=== PATIENT | male | born 1970 | race Caucasian/White ===

== ENCOUNTER 2020-05-09 21:53 | Emergency (ER) | payer MEDICAID ==
[~2020-05-09] VITALS: Ht 167.6 cm; Wt 65.3 kg
--- NOTE | 2020-05-09 22:15 | NUR ---
MARIRA 39 FROM HOME. PER EMS/ FAMILY REPORT W/ C/O ETOH X 12 HRS. PT ALERT AND RESPONSIVE BUT NOT COERENT. PER EMS PT HAS HX OF "KIDNEY DIS" . PT IS UNABLE TO PROVIDE MORE INFO AT THIS TIME . VSS. PT WAS TRANSFERRED TO BED 14 AND PLACED ON MONITOR W/ SUPERVISION OF A SITTER,.
[2020-05-09] MEDS ORDERED: diphenhydrAMINE HCL 50 MG/ML VIAL ONE (22:26)
[2020-05-09] MEDS ORDERED: OLANZAPINE 5 MG TABLET ONE (22:27)
[2020-05-09] MEDS ORDERED: diphenhydrAMINE HCL 50 MG/ML VIAL IM ONE (22:30)
[2020-05-09] MEDS ORDERED: OLANZAPINE 5 MG TABLET PO ONE (22:30)
--- NOTE | 2020-05-09 22:30 | NUR ---
PT SCREAMING AND CURSING. UNABLE TO COLLECT URINE. WILL TRY SOON.
[2020-05-09 22:46] LABS: BASOPHILS % (AUTO) 0.5 % (0.0-2.0); EOSINOPHILS % (AUTO) 1.9 % (0.0-6.0); HEMATOCRIT 41 % (39-51); HEMOGLOBIN 13.9 g/dL (13.5-17.5); LYMPHOCYTES # (AUTO) 4.3 /CMM (0.8-4.8); LYMPHOCYTES % (AUTO) 45.5 % (20.0-44.0); MEAN CORPUSCULAR HGB CONC 34 g/dl (31.0-36.0); MEAN CORPUSCULAR VOLUME 97 fL (80-96); MONOCYTES # (AUTO) 0.5 /CMM (0.1-1.30); MONOCYTES % (AUTO) 5.1 % (2.0-12.0); NEUTROPHILS # (AUTO) 4.4 /CMM (1.8-8.9); PLATELET COUNT (AUTO) 140 /CMM (150-450); RED BLOOD CELL COUNT(AUTO) 4.21 MIL/uL (4.5-6.0); WHITE BLOOD COUNT (AUTO) 9.4 K/uL (4.3-11.0)
--- NOTE | 2020-05-09 22:56 | NUR ---
PATIENT STATES, "FUCK RO [employer] MOTHERFUCKER"
[2020-05-09 23:00] LABS: CALCIUM, SERUM 9.9 mg/dL (8.5-10.1); CARBON DIOXIDE 22 mmol/L (21-32); CHLORIDE 100 mmol/L (98-107); CREATININE 0.8 mg/dL (0.6-1.3); GLUCOSE 121 mg/dL (74-106); POTASSIUM 3.7 mmol/L (3.5-5.1); SODIUM SERUM 137 mmol/L (136-145); UREA NITROGEN, BLOOD 14 mg/dL (7-18)
[2020-05-09 23:07] LABS: ALANINE AMINOTRANSFERASE 119 U/L (12-78); ALBUMIN 3.7 g/dL (3.4-5.0); ALKALINE PHOSPHATASE 53 U/L (46-116); ASPARTATE AMINOTRANSFERASE 129 U/L (15-37); BILIRUBIN,DIRECT 0.2 mg/dL (0.0-0.2); BILIRUBIN,TOTAL 0.4 mg/dL (0.2-1.0); SALICYLATE 5.2 mg/dL (2.8-20.0); TOTAL PROTEIN, SERUM 7.3 g/dL (6.4-8.2)
[2020-05-09 23:09] LABS: ACETAMINOPHEN < 2 ug/ml (10-30)
--- NOTE | 2020-05-09 23:42 | NUR ---
PT CURSING STATING "I WILL FUCK YOUR MAMA"
[2020-05-10] MEDS ORDERED: LORAZEPAM INJ 2 MG/ML VIAL ONE (00:07)
--- NOTE | 2020-05-10 00:22 | NUR ---
URINE COLLECTED AND SENT TO THE LAB.
--- NOTE | 2020-05-10 00:23 | NUR ---
PT VERBALLY ABUSIVE TRYING TO SPIT ON STAFF.
[2020-05-10] MEDS ORDERED: LORAZEPAM INJ 2 MG/ML VIAL IM ONE (00:30)
[2020-05-10 00:47] LABS: ALCOHOL, BLOOD 260 mg/dL (0-0)
[2020-05-10 00:57] LABS: APPEARANCE,URINE CLEAR (CLEAR); BILIRUBIN,URINE NEGATIVE (NEGATIVE); BLOOD, URINE NEGATIVE Ery/uL (NEGATIVE); COLOR,URINE YELLOW (YELLOW); KETONES,URINE NEGATIVE (NEGATIVE); LEUKOCYTE ESTERASE ,URINE NEGATIVE (NEGATIVE); NITRITE, URINE NEGATIVE (NEGATIVE); PROTEIN,URINE NEGATIVE (NEGATIVE); UGLUCOSE NEGATIVE (NEGATIVE); UROBILINOGEN,URINE 0.2 EU/dL (0.2)
--- NOTE | 2020-05-10 02:09 | NUR ---
PATIENT IS SLEEPING. EASILY AROUSABLE THROUGH VERBAL AND MECHANICAL STIMULI. CONNECTED TO THE MONITOR. BREATHING EVENLY AND UNLABORED ON ROOM AIR. NOT IN ANY DISTRESS. SIDE RAILS ARE UP FOR SAFETY. WARM BLANKET PROVIDED TO PATIENT FOR WARMTH WITH NO SIGNS OF FEVER. SITTER AT BEDSIDE.
[2020-05-10 06:17] VITALS: BP 121/72
--- NOTE | 2020-05-10 06:17 | NUR ---
Patient discharged to home in stable condition. Written and verbal after care instructions given. Patient verbalizes understanding of instruction. Pt picked up by mother. Ambulated with steady gait. vss.
== END 2020-05-10 06:18 | disposition home or self-care (01) ==
LOC: ER 21:56
DX: F10.129 Alcohol abuse with intoxication, unspecified (principal); R45.6 Violent behavior; Y90.8 Blood alcohol level of 240 mg/100 ml or more
CPT/HCPCS: 36415; 80048; 80076; 80305; 80307; 80329; 81001; 85025; 96372 ×2; 99284; G0480; J1200; J2060; 81000-TC

== ENCOUNTER 2020-07-29 15:50 | Emergency (ER) | payer MEDICAID ==
[~2020-07-29] VITALS: Ht 177.8 cm; Wt 75.7 kg
--- NOTE | 2020-07-29 15:53 | NUR ---
[id number] FROM HOME WITH C/O RIGHT KNEE PAIN S/P FALL LAST NIGHT. PT STATES HE WAS IN THE BATHROOM WHEN HE FELL AND HIT HIS RIGHT KNEE. NOTED WITH SWELLING ON RIGHT KNEE. -KO. PER PT, DIDNT HIT HIS HEAD. AWAITING FOR MD PLUNKETT
--- NOTE | 2020-07-29 16:19 | NUR ---
x ray done at bedside
[2020-07-29] MEDS ORDERED: MORPHINE SULFATE INJ 4 MG/ML DISP.SYRIN ONE (16:20)
[2020-07-29] MEDS ORDERED: MORPHINE SULFATE INJ 4 MG/ML DISP.SYRIN IM ONE (16:30)
--- NOTE | 2020-07-29 16:45 | NUR ---
pt out for CT
--- NOTE | 2020-07-29 16:55 | NUR ---
pt back from CT
[2020-07-29] MEDS ORDERED: HYDROMORPHONE 1 MG/1 ML DISP.SYRIN ONE (17:00)
[2020-07-29] MEDS ORDERED: HYDROMORPHONE 1 MG/1 ML DISP.SYRIN IM ONE (17:00)
[2020-07-29 18:10] VITALS: BP 154/97
== END 2020-07-29 18:12 | disposition home or self-care (01) ==
LOC: ER 15:55
DX: S82.111A Displaced fracture of right tibial spine, initial encounter for closed fracture (principal); S80.01XA Contusion of right knee, initial encounter; I10 Essential (primary) hypertension; E11.9 Type 2 diabetes mellitus without complications; W01.0XXA Fall on same level from slipping, tripping and stumbling without subsequent striking against object, initial encounter; Y93.89 Activity, other specified; Y92.89 Other specified places as the place of occurrence of the external cause; Y99.8 Other external cause status
CPT/HCPCS: 29505; 73564; 73700; 96372 ×2; 99284; J1170; J2270

== ENCOUNTER 2020-08-04 07:44 | Emergency (ER) | payer MEDICAID ==
[~2020-08-04] VITALS: Ht 177.8 cm; Wt 74.8 kg
[2020-08-04 07:45] VITALS: BP 140/93
--- NOTE | 2020-08-04 08:11 | NUR ---
Patient awake alert non distress complain Left foot /ankle pain .
--- NOTE | 2020-08-04 08:47 | NUR ---
Patient discharged to home in stable condition. Written and verbal after care instructions given. Patient verbalizes understanding of instruction.
== END 2020-08-04 08:48 | disposition home or self-care (01) ==
LOC: ER 07:52
DX: S92.355A Nondisplaced fracture of fifth metatarsal bone, left foot, initial encounter for closed fracture (principal); I10 Essential (primary) hypertension; E11.9 Type 2 diabetes mellitus without complications; X58.XXXA Exposure to other specified factors, initial encounter; Y93.89 Activity, other specified; Y92.89 Other specified places as the place of occurrence of the external cause; Y99.8 Other external cause status
CPT/HCPCS: 73630-TC

== ENCOUNTER 2023-10-22 15:21 | Emergency (ER) | payer MEDICAID ==
[~2023-10-22] VITALS: Ht 177.8 cm; Wt 77.1 kg
[2023-10-22 16:23] LABS: CARBON DIOXIDE 21 mmol/L (21-32); CHLORIDE 89 mmol/L (98-107); CREATININE 1.5 mg/dL (0.6-1.3); GLUCOSE 161 mg/dL (74-106); POTASSIUM 3.9 mmol/L (3.5-5.1); SODIUM SERUM 123 mmol/L (136-145); UREA NITROGEN, BLOOD 43 mg/dL (7-18)
[2023-10-22 16:33] LABS: BASOPHILS % (AUTO) 0.1 % (0.0-2.0); EOSINOPHILS # (AUTO) 0.1 K/uL (0.0-0.7); EOSINOPHILS % (AUTO) 0.9 % (0.0-6.0); HEMATOCRIT 36 % (39-51); HEMOGLOBIN 12.2 g/dL (13.5-17.5); LYMPHOCYTES # (AUTO) 0.6 K/uL (0.8-4.8); MEAN CORPUSCULAR HEMOGLOBIN 30 PG (26.0-33.0); MEAN CORPUSCULAR HGB CONC 34 g/dl (31.0-36.0); MEAN CORPUSCULAR VOLUME 89 fL (80-96); MONOCYTES # (AUTO) 0.5 K/uL (0.1-1.30); MONOCYTES % (AUTO) 3.3 % (2.0-12.0); NEUTROPHILS # (AUTO) 14.6 K/uL (1.8-8.9); NEUTROPHILS % (AUTO) 91.7 % (43.0-81.0); PLATELET COUNT (AUTO) 98 K/uL (150-450); RED BLOOD CELL COUNT(AUTO) 4.06 MIL/uL (4.5-6.0); RED CELL DISTRIBUTION WIDTH 15.3 % (11.5-15.0); WHITE BLOOD COUNT (AUTO) 15.9 K/uL (4.3-11.0)
[2023-10-22 16:55] LABS: BAND % (MANUAL) 9 % (0.0-5.0); LYMPHOCYTES % (MANUAL) 4 % (16-48); METAMYELOCYTES % 1 % (0-0); MONOCYTES % (MANUAL) 6 % (0-11.0); NEUTROPHILS % (MANUAL) 80 (42-76); PLATELET ESTIMATE DECREASED
[2023-10-22 16:56] LABS: ANISOCYTOSIS 1+
[2023-10-22 16:58] LABS: ALANINE AMINOTRANSFERASE 61 U/L (12-78); ALBUMIN 2.5 g/dL (3.4-5.0); ALKALINE PHOSPHATASE 79 U/L (46-116); ASPARTATE AMINOTRANSFERASE 44 U/L (15-37); BILIRUBIN,DIRECT 0.5 mg/dL (0.0-0.2); BILIRUBIN,TOTAL 0.9 mg/dL (0.2-1.0); LIPASE 49 U/L (16-77); NT-PRO BNP 4313 pg/mL (0-125); TOTAL PROTEIN, SERUM 7.1 g/dL (6.4-8.2)
[2023-10-22] MEDS ORDERED: FOLI0.4T6 PO (17:15)
[2023-10-22] MEDS ORDERED: ESCI10TA PO (17:15)
[2023-10-22] MEDS ORDERED: INSU100V9 SQ (17:15)
[2023-10-22] MEDS ORDERED: ZOLP10TA2 PO (17:15)
[2023-10-22] MEDS ORDERED: CLOP75TA15 PO (17:15)
[2023-10-22] MEDS ORDERED: BENA10TA74 PO (17:15)
[2023-10-22] MEDS ORDERED: ACET1TAB23 PO (17:15)
[2023-10-22] MEDS ORDERED: DOCU100C58 PO (17:15)
[2023-10-22] MEDS ORDERED: METF-440 PO (17:15)
[2023-10-22] MEDS ORDERED: BETA45CR3 TP (17:15)
[2023-10-22] MEDS ORDERED: TAMS-12 PO (17:15)
[2023-10-22] MEDS ORDERED: OMEP20CA15 PO (17:15)
[2023-10-22] MEDS ORDERED: GABA300C PO (17:15)
[2023-10-22] MEDS ORDERED: DIPH25TA23 PO (17:15)
[2023-10-22] MEDS ORDERED: ATOR10TA PO (17:15)
[2023-10-22] MEDS ORDERED: INSU100I26 SQ (17:15)
[2023-10-22] MEDS ORDERED: RISP0.2515 PO (17:15)
[2023-10-22] MEDS ORDERED: METO25TA20 PO (17:15)
[2023-10-22] MEDS ORDERED: ASPI-1420 PO (17:15)
[2023-10-22 17:46] LABS: APPEARANCE,URINE SLIGHTLY CLOUDY (CLEAR); BILIRUBIN,URINE NEGATIVE (NEGATIVE); BLOOD, URINE TRACE-INTA Ery/uL (NEGATIVE); COLOR,URINE YELLOW (YELLOW); KETONES,URINE TRACE mg/dL (NEGATIVE); LEUKOCYTE ESTERASE ,URINE NEGATIVE (NEGATIVE); NITRITE, URINE NEGATIVE (NEGATIVE); PH,URINE 5.5 (5.0-8.0); PROTEIN,URINE 1+ mg/dl (NEGATIVE); UGLUCOSE NEGATIVE (NEGATIVE)
[2023-10-22] MEDS ORDERED: IV NS 0.9% 1,000 ML BAG IV ONE (18:00)
[2023-10-22 18:30] LABS: ADD URINE CULTURE NO; BACTERIA,URINE None seen /HPF (None Seen); SQUAMOUS EPITHELIAL CELL,UR 0-2 /HPF (None Seen); URINE AMORPHOUS URATE Many /HPF (None Seen); WBC,URINE 0-2 /HPF (0-3)
[2023-10-22] MEDS ORDERED: PIPERACI/TAZO 3.375GM/D5W 50ML PB IV ONE (19:28)
[2023-10-22] MEDS ORDERED: PIPERACILLIN /TAZOBACTAM 3.375 G in IV D5W 50 ML IV ONE (19:30)
[2023-10-22] MEDS ORDERED: VANCOMYCIN 1 GM in IV D5W 250 ML IV ONE (19:30)
[2023-10-22] MEDS ORDERED: AZITHROMYCIN 500 MG in IV D5W 250 ML IV ONE (19:30)
[2023-10-22] MEDS ORDERED: ACETAMINOPHEN ES 500 MG TABLET ONE (19:42)
[2023-10-22] MEDS ORDERED: ACETAMINOPHEN ES 500 MG TABLET PO ONE (20:00)
[2023-10-23 02:20] VITALS: BP 128/68; TEMP 98.2; O2SAT 98
== END 2023-10-23 02:28 | disposition short-term general hospital (02) ==
LOC: ER 15:21
DX: J18.9 Pneumonia, unspecified organism (principal); I10 Essential (primary) hypertension; E11.9 Type 2 diabetes mellitus without complications; Z79.4 Long term (current) use of insulin; Z79.84 Long term (current) use of oral hypoglycemic drugs; Z79.899 Other long term (current) drug therapy; Z20.822 Contact with and (suspected) exposure to COVID-19
CPT/HCPCS: 99291; 96365; 96367; 71045; 96361; 87426; 93005; 87804 ×2; 85025; 80048; 87077; 87086; 83690; 80076; 81001; 36415; 87420; 84484; 83880; 82962; 87040; 87081; 85007; J3370; J2543; J7030; J0456; A4223; J7060